=== PATIENT | female | born 1975 | race Caucasian/White ===

== ENCOUNTER → 2023-05-25 | Outpatient (CLI) | payer OTHER ==
[2023-05-26 03:07] LABS: RUBELLA AB IGG-REFLAB 2.05 index (Immune >0.99)
== END | disposition home or self-care (01) ==
LOC: LABMN 10:30
PROVIDERS: ATTEND Internal Medicine
DX: Z02.1 Encounter for pre-employment examination (principal)
CPT/HCPCS: 86480; 86706; 86735; 86762; 86765; 86787

== ENCOUNTER 2023-07-26 07:54 | Emergency (ER) | payer OTHER ==
[~2023-07-26] VITALS: Ht 162.6 cm; Wt 102.3 kg
[2023-07-26 07:58] VITALS: BP 151/80; PULSE 86; RESP 18; TEMP 98.2
[2023-07-26] MEDS: ACETAMINOPHEN 500 MG TABLET PO ONE (08:28)
[2023-07-26 08:29] LABS: COVID AG,FIA SOURCE NASAL SWAB
[2023-07-26] MEDS: IBUPROFEN 600 MG TABLET PO ONE (08:29)
[2023-07-26 08:48] LABS: RAPID GROUP A STREP NEGATIVE (NEGATIVE)
[2023-07-26 08:54] LABS: INFLUENZA TYPE A NEGATIVE FOR TYPE A (NEGATIVE); INFLUENZA TYPE B NEGATIVE FOR TYPE B (NEGATIVE)
[2023-07-26 08:55] LABS: SARS-COV2 (COVID) ANTIGEN,FIA Positive (Negative)
== END 2023-07-26 09:33 | disposition home or self-care (01) ==
LOC: EMS 07:58
DX: U07.1 COVID-19 (principal); M54.50 Low back pain, unspecified; Z98.890 Other specified postprocedural states
CPT/HCPCS: 87430; 87804; 99283

== ENCOUNTER 2024-06-15 09:47 | Emergency (ER) | payer OTHER ==
[2024-06-15] MEDS ORDERED: METO-408 PO (09:53)
[2024-06-15] MEDS ORDERED: ASPI-1444 PO (09:53)
== END 2024-06-15 10:58 | disposition left against medical advice (07) ==
LOC: EMS 09:52
DX: R42 Dizziness and giddiness (principal); Z53.21 Procedure and treatment not carried out due to patient leaving prior to being seen by health care provider
CPT/HCPCS: 93005